=== PATIENT | female | born 1975 | race Two or more races ===

== ENCOUNTER 2017-04-29 17:52 | Emergency (ER) | payer OTHER ==
[~2017-04-29] VITALS: Ht 160 cm; Wt 56.2 kg
[~2017-04-29 17:52] MED LIST: FAMO-12 PO; FER325T PO; FURO40TA4 PO; LACT10SO3 PO; ONDA4TAB5 PO; SPIR100T21 PO
[2017-04-29 18:48] LABS: Basophils # (auto) 0 uL; Basophils % (auto) 0.7 % (0.0-2.0); DEFINITIVE VIEW TRANSMISSION; Eosinophils # (auto) 0.1 uL; Hematocrit 36.7 % (36.0-46.0); Hemoglobin 12.4 g/dL (12.2-16.2); Lymphocytes # (auto) 1.6 uL; Lymphocytes % (auto) 23.8 % (10.0-50.0); Mean Corpuscular Hemoglobin 34.7 pg (28.0-32.0); Mean Corpuscular Hgb Conc. 33.9 g/dL (32.0-36.0); Mean Corpuscular Volume 102.5 fL (80.0-100.0); Mean Platelet Volume 8.7 fL (7.4-10.4); Monocytes # (auto) 0.6 uL; Monocytes % (auto) 8.7 % (0.0-12.0); Neutrophils # (auto) 4.4 uL; Neutrophils % (auto) 65.8 % (37.0-80.0); Platelet Count (auto) 214 10^3/uL (140-450); Red Cell Distribution Width 15.7 % (11.6-16.0); White Blood Cell 6.7 10^3/uL (4.4-10.8)
[2017-04-29 19:03] LABS: Albumin 2.1 g/dL (3.4-5.0); BUN/Creatinine Ratio 13.6; Calcium 8.3 mg/dL (8.5-10.1); Potassium 4.6 mmol/L (3.5-5.1)
[2017-04-29 19:05] LABS: Bilirubin, Total 3.4 mg/dL (0.2-1.0); Total Protein 7.7 g/dL (6.4-8.2)
[2017-04-29 20:07] LABS: Anisocytosis Moderate; Platelet Estimate Adequate
[2017-04-29 20:08] LABS: Burr Cells FEW; Macrocytosis Moderate
[2017-04-30] MEDS ORDERED: HYDROcodone-ACET 5/325MG TAB PO ONE (03:00)
[2017-04-30 03:06] LABS: INR 1.24 (0.9-1.15); Prothrombin Time 13.5 sec (9.37-12.3)
[2017-04-30] MEDS ORDERED: LORazepam 2MG/ML-1ML VIAL IV ONE (04:00)
[2017-04-30 06:17] VITALS: BP 102/58
== END 2017-04-30 06:26 | disposition home or self-care (01) ==
LOC: ER 17:54
DX: K70.31 Alcoholic cirrhosis of liver with ascites (principal); I12.0 Hypertensive chronic kidney disease with stage 5 chronic kidney disease or end stage renal disease; N18.6 End stage renal disease; Z87.440 Personal history of urinary (tract) infections; Z88.0 Allergy status to penicillin; Z79.899 Other long term (current) drug therapy
CPT/HCPCS: 36415; 49082; 74176; 80053; 82140; 85025; 85610; 96374; 99291; J2060

== ENCOUNTER 2017-07-18 13:04 | Inpatient (IN) | payer OTHER ==
[~2017-07-18] VITALS: Ht 160 cm; Wt 57.1 kg
[~2017-07-18 13:04] MED LIST changes: +HYDR-4663 PO; +HYDR50TA69 PO
[2017-07-18 13:40] LABS: Basophils # (auto) 0 uL; CONDITION Y; DEFINITIVE SEE PRINTOUT; Eosinophils # (auto) 0 uL; Eosinophils % (auto) 0.4 % (0.0-7.0); Hematocrit 35.5 % (36.0-46.0); Hemoglobin 12.2 g/dL (12.2-16.2); Lymphocytes % (auto) 9.4 % (10.0-50.0); Mean Corpuscular Hemoglobin 35.6 pg (28.0-32.0); Mean Corpuscular Hgb Conc. 34.4 g/dL (32.0-36.0); Mean Corpuscular Volume 103.5 fL (80.0-100.0); Mean Platelet Volume 9.8 fL (7.4-10.4); Monocytes # (auto) 0.7 uL; Monocytes % (auto) 6.6 % (0.0-12.0); Neutrophils # (auto) 8.6 uL; Neutrophils % (auto) 83.6 % (37.0-80.0); Platelet Count (auto) 119 10^3/uL (140-450); Red Cell Distribution Width 18.3 % (11.6-16.0); White Blood Cell 10.3 10^3/uL (4.4-10.8)
[2017-07-18 14:02] LABS: Albumin 2.9 g/dL (3.4-5.0); BUN/Creatinine Ratio 21.1; Calcium 9.4 mg/dL (8.5-10.1); Magnesium 2.6 mg/dL (1.6-2.6); Potassium 5.3 mmol/L (3.5-5.1)
[2017-07-18 14:05] LABS: Bilirubin, Total 2.7 mg/dL (0.2-1.0); Total Protein 7.8 g/dL (6.4-8.2)
[2017-07-18] MEDS ORDERED: SODIUM CHLORIDE 0.9% 1,000 ML IVB ONE (18:14)
[2017-07-18 18:44] LABS: INR 1.05 (0.9-1.15); Partial Thromboplastin Time 31.5 sec (22.64-33.71); Prothrombin Time 11.5 sec (9.37-12.3)
[2017-07-18 18:54] LABS: Amylase 196 U/L (25-115)
[2017-07-18] MEDS ORDERED: MORPHINE SULF INJ 2 MG/ML SYRINGE 1ML IV ONE (20:30)
[2017-07-18] MEDS ORDERED: ONDANSETRON HCL 4 MG/2 ML VIAL IV ONE (20:30)
[2017-07-18 21:53] LABS: Urine Bilirubin Negative (Negative); Urine Blood Negative /uL (Negative); Urine Color Yellow (Yellow); Urine Glucose Normal (Normal); Urine Granular Cast MANY /lpf (0); Urine Hyaline Cast MOD /lpf (0 - 2); Urine Ketone Negative (Negative); Urine Mucus FEW (None Seen); Urine Nitrite Negative (Negative); Urine RBC 3 /hpf (0 - 4); Urine Squamous Epithelial Cell FEW /hpf (<5); Urine Urobilinogen Normal (Negative); Urine pH 5.5 (5.0-8.0)
[2017-07-18] MEDS ORDERED: LORazepam 0.5 MG TAB PO PRN (22:30)
[2017-07-18] MEDS ORDERED: ONDANSETRON HCL 4 MG/2 ML VIAL IV PRN (22:30)
[2017-07-18] MEDS ORDERED: cefTRIAXone 1GM/50ML D5W 50 ML IV ONE (22:45)
[2017-07-18] MEDS ORDERED: HYDROcodone-ACET 5/325MG TAB PO PRN (22:45)
[2017-07-18] MEDS ORDERED: SODIUM CHLORIDE 0.9% 1,000 ML IV SCH (23:00)
[2017-07-19] VITALS: BP 109/61
[2017-07-19] MEDS: MORPHINE SULF INJ 2 MG/ML SYRINGE 1ML IV PRN ×3 (03:16→23:18)
[2017-07-19 05:00] VITALS: BP 101/59
[2017-07-19 06:46] LABS: Basophils # (auto) 0 uL; Basophils % (auto) 0.4 % (0.0-2.0); CONDITION Y; DEFINITIVE SEE PRINTOUT; Eosinophils # (auto) 0.1 uL; Eosinophils % (auto) 0.7 % (0.0-7.0); Hematocrit 29.9 % (36.0-46.0); Hemoglobin 10.5 g/dL (12.2-16.2); Lymphocytes # (auto) 1.3 uL; Lymphocytes % (auto) 12.9 % (10.0-50.0); Mean Corpuscular Hemoglobin 35.8 pg (28.0-32.0); Mean Corpuscular Hgb Conc. 35.1 g/dL (32.0-36.0); Mean Platelet Volume 10.2 fL (7.4-10.4); Monocytes # (auto) 0.8 uL; Monocytes % (auto) 7.7 % (0.0-12.0); Neutrophils # (auto) 7.8 uL; Neutrophils % (auto) 78.3 % (37.0-80.0); Platelet Count (auto) 87 10^3/uL (140-450); Red Cell Distribution Width 18.2 % (11.6-16.0)
[2017-07-19 07:06] LABS: Albumin 2.1 g/dL (3.4-5.0); Calcium 8.5 mg/dL (8.5-10.1); Potassium 4.8 mmol/L (3.5-5.1)
[2017-07-19 07:08] LABS: BUN/Creatinine Ratio 29.5
[2017-07-19 07:11] LABS: Bilirubin, Total 1.7 mg/dL (0.2-1.0); Total Protein 6.1 g/dL (6.4-8.2)
[2017-07-19 09:00] VITALS: BP 81/48
[2017-07-19] MEDS: FAMOTIDINE 20 MG TAB PO SCH (09:27)
[2017-07-19] MEDS: FERROUS SULFATE 325 MG TAB PO SCH ×2 (09:27→18:20)
[2017-07-19] MEDS: LACTULOSE 20Gm/30ML SOLN PO SCH (09:27)
[2017-07-19] MEDS: SPIRONOLACTONE 25 MG TAB PO SCH (09:27)
[2017-07-19] MEDS ORDERED: FUROSEMIDE 40 MG TAB PO SCH (10:00)
[2017-07-19 13:00] VITALS: BP 109/60
[2017-07-19 17:00] VITALS: BP 105/56
[2017-07-19] MEDS: TEMAZEPAM 15 MG CAP PO PRN (21:39)
[2017-07-19 22:00] VITALS: BP 101/48
[2017-07-19] MEDS ORDERED: cefTRIAXone 1GM/50ML D5W 50 ML IV SCH (22:00)
[2017-07-20 05:28] VITALS: BP 91/57
[2017-07-20 05:52] LABS: Basophils # (auto) 0 uL; Basophils % (auto) 0.5 % (0.0-2.0); CONDITION Y; DEFINITIVE SEE PRINTOUT; Eosinophils # (auto) 0.1 uL; Eosinophils % (auto) 1.6 % (0.0-7.0); Hematocrit 30.5 % (36.0-46.0); Hemoglobin 10.5 g/dL (12.2-16.2); Lymphocytes # (auto) 1.6 uL; Lymphocytes % (auto) 21.9 % (10.0-50.0); Mean Corpuscular Hemoglobin 35.5 pg (28.0-32.0); Mean Corpuscular Hgb Conc. 34.4 g/dL (32.0-36.0); Mean Corpuscular Volume 103.2 fL (80.0-100.0); Mean Platelet Volume 10.4 fL (7.4-10.4); Monocytes # (auto) 0.9 uL; Neutrophils # (auto) 4.7 uL; Platelet Count (auto) 88 10^3/uL (140-450); SUSPECT SEE PRINTOUT; White Blood Cell 7.4 10^3/uL (4.4-10.8)
[2017-07-20 06:02] LABS: BUN/Creatinine Ratio 35.5; Calcium 8.5 mg/dL (8.5-10.1); Potassium 5.5 mmol/L (3.5-5.1)
[2017-07-20 08:00] VITALS: BP 105/59
[2017-07-20] MEDS: FAMOTIDINE 20 MG TAB PO SCH (09:38)
[2017-07-20] MEDS: FERROUS SULFATE 325 MG TAB PO SCH ×2 (09:38→18:10)
[2017-07-20] MEDS: LACTULOSE 20Gm/30ML SOLN PO SCH (09:38)
[2017-07-20] MEDS: SPIRONOLACTONE 25 MG TAB PO SCH (09:38)
[2017-07-20 09:42] VITALS: BP 105/59
[2017-07-20 12:41] VITALS: BP 103/50
[2017-07-20] MEDS ORDERED: FUROSEMIDE 40 MG TAB PO ONE (16:30)
[2017-07-20 17:19] VITALS: BP 99/50
[2017-07-20] MEDS: MORPHINE SULF INJ 2 MG/ML SYRINGE 1ML IV PRN (23:00)
[2017-07-20] MEDS: TEMAZEPAM 15 MG CAP PO PRN (23:00)
[2017-07-20 23:04] VITALS: BP 99/54
[2017-07-21 04:50] VITALS: BP 91/76
[2017-07-21 08:15] VITALS: BP 100/59
[2017-07-21 08:57] LABS: BUN/Creatinine Ratio 34.7; Calcium 8.5 mg/dL (8.5-10.1); Potassium 5.4 mmol/L (3.5-5.1)
[2017-07-21] MEDS: FERROUS SULFATE 325 MG TAB PO SCH (09:39)
[2017-07-21] MEDS: LACTULOSE 20Gm/30ML SOLN PO SCH (09:39)
[2017-07-21] MEDS: FAMOTIDINE 20 MG TAB PO SCH (09:39)
[2017-07-21] MEDS ORDERED: SPIRONOLACTONE 25 MG TAB PO SCH (10:00)
[2017-07-21] MEDS ORDERED: FUROSEMIDE 40 MG TAB PO SCH (10:00)
[2017-07-21 11:37] VITALS: BP 102/51
[2017-07-21 11:38] VITALS: BP 100/59
== END 2017-07-21 12:30 | disposition home or self-care (01) | DRG 279 ==
LOC: ER 13:04 → OVERFLOW 13:05 → CENTRAL 23:44
PROVIDERS: ADMIT Nurse Practitioner Family; ATTEND Internal Medicine Pulmonary Disease
PROC: 0W9G30Z Drainage of Peritoneal Cavity with Drainage Device, Percutaneous Approach (ICD-10-PCS; principal; 2017-07-20)
DX: K76.7 Hepatorenal syndrome (principal); N17.0 Acute kidney failure with tubular necrosis; E43 Unspecified severe protein-calorie malnutrition; N18.4 Chronic kidney disease, stage 4 (severe); D69.6 Thrombocytopenia, unspecified; K85.90 Acute pancreatitis without necrosis or infection, unspecified; E87.1 Hypo-osmolality and hyponatremia; E88.09 Other disorders of plasma-protein metabolism, not elsewhere classified; K70.31 Alcoholic cirrhosis of liver with ascites; K70.40 Alcoholic hepatic failure without coma; E87.5 Hyperkalemia; N39.0 Urinary tract infection, site not specified; K80.20 Calculus of gallbladder without cholecystitis without obstruction; I12.9 Hypertensive chronic kidney disease with stage 1 through stage 4 chronic kidney disease, or unspecified chronic kidney disease; D63.8 Anemia in other chronic diseases classified elsewhere; F41.9 Anxiety disorder, unspecified; Z82.49 Family history of ischemic heart disease and other diseases of the circulatory system; Z88.0 Allergy status to penicillin; Z98.891 History of uterine scar from previous surgery; Z68.22 Body mass index [BMI] 22.0-22.9, adult
CPT/HCPCS: 36415; 71010; 74176; 76942; 80048; 80053; 80320; 81001; 81025; 82140; 82150; 83690; 83735; 85025; 85610; 85730; 87081; 94761; 96374; 96375; J0696; J2405